=== PATIENT | female | born 1955 | race African-American/Black ===

== ENCOUNTER 2021-03-26 16:36 | Emergency (ER) | payer OTHER ==
[~2021-03-26] VITALS: Ht 167.6 cm; Wt 80.0 kg
[2021-03-26] MEDS ORDERED: SODIUM CHLORIDE 0.9% 500 ML IV ONE (17:15)
[2021-03-26 18:42] LABS: BASOPHILS % 0.7 % (0.0-2.0); EOSINOPHILS % 0.1 % (0.0-5.0); HEMATOCRIT. 36.9 % (36.0-48.0); HEMOGLOBIN. 12.3 g/dL (12.0-16.0); LYMPHOCYTES % 8.8 % (20.0-50.0); MEAN CORPUSCULAR HEMOGLOBIN 30.4 pg (28.0-32.0); MEAN PLATELET VOLUME 7.9 fl (7.4-10.4); MONOCYTES % 2.2 % (2.0-8.0); NEUTROPHILS % 88.2 % (40.0-76.0); PLATELET 372 x1000/uL (130-400); RED BLOOD CELL COUNT 4.05 mill/uL (4.2-5.4); RED CELL DISTRIBUTION WIDTH 18.5 % (11.6-14.6)
[2021-03-26 18:50] LABS: CHLORIDE 97 mEq/L (98-107)
[2021-03-26 18:54] LABS: ETHANOL BLOOD < 10 mg/dL
[2021-03-26] MEDS ORDERED: FUROSEMIDE 100MG/10ML VIAL IV NR (19:08)
[2021-03-26] MEDS ORDERED: ALBUTEROL (0.083%) 2.5MG/3ML NEB HHN NR (19:15)
[2021-03-26] MEDS ORDERED: DEXTROSE 50% WATER 50ML SYRINGE IV NR (19:15)
[2021-03-26] MEDS ORDERED: SODIUM BICARBONATE 8.4% 1 MEQ/ML 50ML SYR IV NR (19:15)
[2021-03-26] MEDS ORDERED: CALCIUM CHLORIDE 1GM/10ML SYR IV NR (19:15)
[2021-03-26] MEDS ORDERED: INSULIN REGULAR (HUMULIN R) 300UNITS/3ML VIAL IV NR (19:15)
[2021-03-26] MEDS ORDERED: SODIUM POLYSTYRENE SULFONATE 15 G/60 ML BOT PO NR (19:15)
[2021-03-26] MEDS ORDERED: ONDANSETRON HCL 4MG/2ML INJ IV ONE (20:00)
[2021-03-26] MEDS ORDERED: HYDRALAZINE 20MG/ML VIAL IV NR (20:15)
[2021-03-26] MEDS ORDERED: NIFEDIPINE 10MG CAPSULE PO ONE (21:30)
[2021-03-26] MEDS ORDERED: ATENOLOL 25MG TABLET PO ONE (21:30)
[2021-03-26 23:30] VITALS: BP 167/87
== END 2021-03-27 00:16 | disposition short-term general hospital (02) ==
LOC: ER 16:56 → CANBEDREQ 23:08 → ER 03-27 00:16
DX: G93.49 Other encephalopathy (principal); I12.0 Hypertensive chronic kidney disease with stage 5 chronic kidney disease or end stage renal disease; N18.6 End stage renal disease; E11.22 Type 2 diabetes mellitus with diabetic chronic kidney disease; Z99.2 Dependence on renal dialysis; Z79.4 Long term (current) use of insulin
CPT/HCPCS: 36415; 70450; 71045; 80048; 80053; 80320; 83605; 84145; 84484; 85025; 93005; 96361; 96374; 96375; 99285; J0360; J1815; J1940; J3490; J7040; Z7610; G0480